=== PATIENT | male | born 1975 | race Caucasian/White ===

== ENCOUNTER → 2018-02-09 | Outpatient (CLI) | payer OTHER ==
[~2018-02-09] MED LIST: ACYC800 PO; ALBU90OI61 INH; ALPR1 PO; AMOX1XR PO; ATOR40TA PO; AZIT250 PO; BUTASPCAF PO; Bactrim Ds Tab1 EACH PO; CEPH500 PO; CIPHYDOTSU OT; CLON1 PO; CYCL10 PO; Cleocin HCl300 MG PO; Clonazepam1 MG PO; DIPATR PO; DIVA500EC; DIVA500EC PO; HYDACE5 PO; IBUP600 PO; IBUP800 PO; INSDET100 SC; INSULANPEN SC; Keflex500 MG PO; Klonopin1 MG PO; LAMO25 PO; LISI20 PO; LISI5 PO; LORA.5 PO; Lisinopril2.5 MG PO; METCAR500 PO; METF500 PO; MIRT15 PO; NAPR500 PO; NAPR550 PO; NEOCOLOTSU OT; NEOPOLHYDS BOTHEARS; NEOPOLHYDS OT; Naprosyn500 MG PO; Novolog Fl100 UNIT/1 SC; OLAN10 PO; OLAN5 PO; OMEP20ER PO; OXYACE5T PO; PENICILLIN; PENVK500; PRED10 PO; PRED20 PO; Percocet 5-3251 EACH PO; RXSULTRIDS PO; Robaxin-750750 MG PO; SULTRIDS PO; TRAM50 PO; UNKNOWN BP MED; Vistaril50 MG PO; Zofran Odt8 MG SL; Zofran4 MG PO; Zofran8 MG PO; Zyprexa10 MG PO; [UNRECOGNIZED DRUG - OTHER]
[2018-02-09 13:07] LABS: BASOPHILS ABSOLUTE AUTO 0.05 K/mm3 (0.00-0.23); BASOPHILS PERCENT AUTO 1 % (0-2); EOSINOPHILS ABSOLUTE AUTO 0.15 K/mm3 (0.00-0.68); EOSINOPHILS PERCENT AUTO 3 % (0-6); Hematocrit 44.8 % (37.0-53.0); Hemoglobin 15.5 g/dL (13.5-17.5); IMMATURE GRAN ABSOLUTE AUTO 0.01 K/mm3 (0.00-0.10); IMMATURE GRAN PERCENT AUTO 0 % (0-1); LYMPHOCYTES ABSOLUTE AUTO 1.56 K/mm3 (0.84-5.20); LYMPHOCYTES PERCENT AUTO 32 % (21-46); MONOCYTES PERCENT AUTO 10 % (4-13); Mean Corpuscular HGB 30.3 pg (26.0-34.0); Mean Corpuscular HGB Conc 34.6 g/dL (31.5-36.5); Mean Corpuscular Volume 88 fL (80-100); Mean Platelet Volume 10.1 fL (9.1-12.4); NEUTROPHILS ABSOLUTE AUTO 2.63 K/mm3 (1.96-9.15); NEUTROPHILS PERCENT AUTO 54 % (41-73); Platelet Count 256 K/mm3 (150-400); RDW Coefficient Variation 11.3 % (11.7-14.2); RDW Standard Deviation 36.4 fL (35.1-46.3); Red Blood Cell Count 5.11 M/mm3 (4.30-5.90)
[2018-02-09 13:41] LABS: Alanine Aminotransfer (ALT/SGP 25 U/L (12-78); Albumin, Blood 3.8 g/dL (3.4-5.0); Albumin/Globulin Ratio 1.1 (0.8-1.8); Alk Phos 123 U/L (50-136); Anion Gap 7 mmol/L (6-16); Aspartate Aminotrans (AST/SGOT 16 U/L (12-37); Bilirubin, Total 0.3 mg/dL (0.1-1.0); Blood Urea Nitrogen 14 mg/dL (8-24); Bun/Creatinine Ratio 17.3 (12.0-20.0); CO2, Blood 25 mmol/L (21-32); Calcium, Blood 9.2 mg/dL (8.5-10.1); Chloride, Blood 103 mmol/L (98-108); Creatinine, Blood 0.81 mg/dL (0.60-1.20); Globulin, Blood 3.5 g/dL (2.2-4.0); Glomerular Filtration Rate >60 (60-); Glucose, Blood 315 mg/dL (70-99); Potassium, Blood 4.1 mmol/L (3.5-5.5); Sodium, Blood 135 mmol/L (136-145); Total Protein, Blood 7.3 g/dL (6.4-8.2); Uric Acid, Blood 3.2 mg/dL (3.5-7.2)
== END ==
LOC: LAB SRC 12:09
PROVIDERS: Family Medicine
DX: E10.65 Type 1 diabetes mellitus with hyperglycemia (principal); M79.671 Pain in right foot
CPT/HCPCS: 36415; 80053; 82043; 83036; 84550; 85025

== ENCOUNTER 2018-03-10 08:58 | Emergency (ER) | payer SELFPAY ==
[~2018-03-10] VITALS: Ht 185.4 cm; Wt 86.2 kg
[2018-03-10] MEDS ORDERED: CYCL10 PO (09:43)
[2018-03-10] MEDS ORDERED: IBUP600 PO (09:43)
== END 2018-03-10 10:29 | disposition home or self-care (01) ==
LOC: ER 08:58
DX: G89.29 Other chronic pain (principal); M54.5 Low back pain; E10.9 Type 1 diabetes mellitus without complications; I10 Essential (primary) hypertension; Z79.84 Long term (current) use of oral hypoglycemic drugs; Z79.899 Other long term (current) drug therapy; Z87.891 Personal history of nicotine dependence
CPT/HCPCS: 82947; 96372; 99283; J1885

== ENCOUNTER 2018-06-04 21:06 | Emergency (ER) | payer SELFPAY ==
[~2018-06-04] VITALS: Ht 185.4 cm; Wt 83.9 kg
== END 2018-06-05 00:02 | disposition left against medical advice (07) ==
LOC: ER 21:06
DX: Z53.21 Procedure and treatment not carried out due to patient leaving prior to being seen by health care provider (principal)

== ENCOUNTER 2019-01-02 09:02 | Emergency (ER) | payer OTHER ==
[~2019-01-02] VITALS: Ht 185.4 cm; Wt 83.9 kg
[2019-01-02] MEDS ORDERED: DIVA250EC PO (09:29)
[2019-01-02] MEDS ORDERED: CEPH500 PO (09:42)
== END 2019-01-02 09:50 | disposition home or self-care (01) ==
LOC: ER 09:02
DX: S61.012A Laceration without foreign body of left thumb without damage to nail, initial encounter (principal); W26.8XXA Contact with other sharp object(s), not elsewhere classified, initial encounter; Z79.4 Long term (current) use of insulin; Z79.899 Other long term (current) drug therapy; F17.220 Nicotine dependence, chewing tobacco, uncomplicated; I10 Essential (primary) hypertension; E11.9 Type 2 diabetes mellitus without complications; F43.10 Post-traumatic stress disorder, unspecified
CPT/HCPCS: 12001; 99282-25

== ENCOUNTER 2019-01-10 12:03 | Emergency (ER) | payer OTHER ==
[~2019-01-10] VITALS: Ht 185.4 cm; Wt 86.2 kg
[~2019-01-10 12:03] MED LIST changes: +DIVA250EC PO
[2019-01-10] MEDS ORDERED: Mupirocin22 GM TOP (12:24)
== END 2019-01-10 12:34 | disposition home or self-care (01) ==
LOC: ER 12:03
DX: S61.012D Laceration without foreign body of left thumb without damage to nail, subsequent encounter (principal); X58.XXXD Exposure to other specified factors, subsequent encounter; Z79.4 Long term (current) use of insulin; Z79.899 Other long term (current) drug therapy; Z87.891 Personal history of nicotine dependence; I10 Essential (primary) hypertension; E11.9 Type 2 diabetes mellitus without complications; F43.10 Post-traumatic stress disorder, unspecified
CPT/HCPCS: 99282

== ENCOUNTER 2019-02-11 23:04 | Emergency (ER) | payer OTHER ==
[~2019-02-11] VITALS: Ht 185.4 cm; Wt 83.9 kg
[~2019-02-11 23:04] MED LIST changes: +Mupirocin22 GM TOP
[2019-02-12] MEDS ORDERED: Cyclobenzaprine5 MG PO (00:03)
[2019-02-12] MEDS ORDERED: KETO10 PO (00:03)
[2019-02-12] MEDS ORDERED: Robaxin500 MG PO (00:16)
== END 2019-02-12 00:24 | disposition home or self-care (01) ==
LOC: ER 23:04
DX: G89.29 Other chronic pain (principal); M54.5 Low back pain; Z79.899 Other long term (current) drug therapy; Z79.4 Long term (current) use of insulin; Z87.891 Personal history of nicotine dependence; I10 Essential (primary) hypertension; E11.9 Type 2 diabetes mellitus without complications; F43.10 Post-traumatic stress disorder, unspecified
CPT/HCPCS: 96372; 99283; J1885

== ENCOUNTER 2019-03-07 10:47 | Emergency (ER) | payer OTHER ==
[~2019-03-07] VITALS: Ht 185.4 cm; Wt 84.8 kg
[~2019-03-07 10:47] MED LIST changes: +Cyclobenzaprine5 MG PO; +KETO10 PO; +Robaxin500 MG PO
[2019-03-07] MEDS ORDERED: KETO10 PO (11:24)
[2019-03-07] MEDS ORDERED: Robaxin500 MG PO (11:24)
== END 2019-03-07 11:43 | disposition home or self-care (01) ==
LOC: ER 10:47
DX: G89.29 Other chronic pain (principal); M54.5 Low back pain; Z79.899 Other long term (current) drug therapy; Z79.84 Long term (current) use of oral hypoglycemic drugs; Z79.4 Long term (current) use of insulin; I10 Essential (primary) hypertension; E11.9 Type 2 diabetes mellitus without complications; F43.10 Post-traumatic stress disorder, unspecified; F17.220 Nicotine dependence, chewing tobacco, uncomplicated
CPT/HCPCS: 96372; 99283-25; J1885

== ENCOUNTER 2019-05-09 19:16 | Emergency (ER) | payer OTHER ==
[~2019-05-09] VITALS: Ht 182.9 cm; Wt 84.8 kg
[2019-05-09] MEDS ORDERED: Robaxin500 MG PO (20:52)
== END 2019-05-09 21:20 | disposition home or self-care (01) ==
LOC: ER 19:16
DX: M54.5 Low back pain (principal); Z79.4 Long term (current) use of insulin; Z79.899 Other long term (current) drug therapy; E11.9 Type 2 diabetes mellitus without complications; I10 Essential (primary) hypertension; F43.10 Post-traumatic stress disorder, unspecified; F17.220 Nicotine dependence, chewing tobacco, uncomplicated
CPT/HCPCS: 96372; 99283-25; A9270-GY; J1885

== ENCOUNTER 2019-05-30 08:21 | Inpatient (IN) | payer OTHER ==
[~2019-05-30] VITALS: Ht 185.4 cm; Wt 77.7 kg
[2019-05-30 09:02] LABS: BASOPHILS ABSOLUTE AUTO 0.07 K/mm3 (0.00-0.23); BASOPHILS PERCENT AUTO 0 % (0-2); EOSINOPHILS PERCENT AUTO 0 % (0-6); Hematocrit 48.5 % (37.0-53.0); Hemoglobin 15.7 g/dL (13.5-17.5); IMMATURE GRAN ABSOLUTE AUTO 0.07 K/mm3 (0.00-0.10); IMMATURE GRAN PERCENT AUTO 0 % (0-1); LYMPHOCYTES PERCENT AUTO 4 % (21-46); MONOCYTES ABSOLUTE AUTO 2.29 K/mm3 (0.16-1.47); MONOCYTES PERCENT AUTO 12 % (4-13); Mean Corpuscular HGB 31.3 pg (26.0-34.0); Mean Corpuscular HGB Conc 32.4 g/dL (31.5-36.5); Mean Corpuscular Volume 97 fL (80-100); Mean Platelet Volume 9.9 fL (9.1-12.4); NEUTROPHILS ABSOLUTE AUTO 15.66 K/mm3 (1.96-9.15); NEUTROPHILS PERCENT AUTO 83 % (41-73); Platelet Count 317 K/mm3 (150-400); RDW Coefficient Variation 12.1 % (11.7-14.2); RDW Standard Deviation 43.4 fL (35.1-46.3); Red Blood Cell Count 5.01 M/mm3 (4.30-5.90); White Blood Cell Count 18.79 K/mm3 (4.00-11.30)
[2019-05-30 09:31] LABS: Alanine Aminotransfer (ALT/SGP 49 U/L (12-78); Albumin, Blood 4.4 g/dL (3.4-5.0); Albumin/Globulin Ratio 1.2 (0.8-1.8); Alk Phos 122 U/L (50-136); Anion Gap 36 mmol/L (6-16); Aspartate Aminotrans (AST/SGOT 28 U/L (12-37); Bilirubin, Total 0.8 mg/dL (0.1-1.0); Blood Urea Nitrogen 35 mg/dL (8-24); Bun/Creatinine Ratio 19.8 (12.0-20.0); CO2, Blood 5 mmol/L (21-32); Chloride, Blood 88 mmol/L (98-108); Creatinine, Blood 1.77 mg/dL (0.60-1.20); Globulin, Blood 3.7 g/dL (2.2-4.0); Glomerular Filtration Rate 45 (60-); Glucose, Blood 703 mg/dL (70-99); Sodium, Blood 129 mmol/L (136-145); Total Protein, Blood 8.1 g/dL (6.4-8.2)
[2019-05-30 10:13] LABS: Base Excess Venous -28.2 mmol/L; Bicarbonate Venous 7.1 mmol/L (24.0-30.0); PO2 Venous 122 mmHg (38-42); pH Blood Venous 6.89 (7.34-7.37)
[2019-05-30 12:58] LABS: Glucose, Blood 421 mg/dL (70-99)
--- NOTE | 2019-05-30 14:30 | NUR ---
Patient arrived just after 1400 and was self transfer to ICU bed. He was alert and oriented and was independent in room Assisted him to bathroom with lines and pump. He has 900 yellow urine out. Admit dome by Antonietta MCCOY. Patient fell asleep very quickly but awakens to verbal stimuli. He has 18ga IB RFA and is infuing NS bolus and changed over to pump. He also has insulin gtt going at 8.2 units/hr.
[2019-05-30 14:38] LABS: Albumin, Blood 3.4 g/dL (3.4-5.0); Amylase, Blood 26 U/L (25-115); Anion Gap 21 mmol/L (6-16); Blood Urea Nitrogen 30 mg/dL (8-24); Bun/Creatinine Ratio 23.8 (12.0-20.0); CO2, Blood 11 mmol/L (21-32); Calcium, Blood 7.8 mg/dL (8.5-10.1); Chloride, Blood 106 mmol/L (98-108); Creatinine, Blood 1.26 mg/dL (0.60-1.20); Glomerular Filtration Rate >60 (60-); Glucose, Blood 292 mg/dL (70-99); Magnesium, Blood 2.3 mg/dL (1.6-2.4); Phosphorus, Blood 2.4 mg/dL (2.5-4.9); Potassium, Blood 4.2 mmol/L (3.5-5.5); Sodium, Blood 138 mmol/L (136-145)
--- NOTE | 2019-05-30 16:30 | NUR ---
Family present in room and patient sleeping. He awakened to take PO med with water and fell back to sleep. He remains on RA and sats upper 90%'s. His CBG was 166 and dropped insulin gtt to 4 units/hr. VSS. 2nd bolus done and started NS at 200ml/hr, gave biCard and protonix, potassium Phos.
--- NOTE | 2019-05-30 18:34 | NUR ---
Patient has been sleeping and awakens for care, CBG's last 3 hours have been 150-160 andf remains at 4 units/hr and started him on D5 1/2 at 150 ml/hr at 1730. RA, ANDRZEJ, See EMR. Just juvenal labs.
[2019-05-30 19:00] LABS: Albumin, Blood 2.8 g/dL (3.4-5.0); Anion Gap 10 mmol/L (6-16); Blood Urea Nitrogen 23 mg/dL (8-24); Bun/Creatinine Ratio 24.6 (12.0-20.0); CO2, Blood 18 mmol/L (21-32); Calcium, Blood 7.1 mg/dL (8.5-10.1); Chloride, Blood 110 mmol/L (98-108); Creatinine, Blood 0.93 mg/dL (0.60-1.20); Glomerular Filtration Rate >60 (60-); Glucose, Blood 252 mg/dL (70-99); Phosphorus, Blood 3.8 mg/dL (2.5-4.9); Potassium, Blood 4.7 mmol/L (3.5-5.5); Sodium, Blood 138 mmol/L (136-145)
--- NOTE | 2019-05-30 19:15 | NUR ---
ASSUMING CARE OF PT AT THIS TIME. PT REPORT RECEIVED AT BEDSIDE WITH OFFGOING NURSE, SAMIRA MCCOY. PT LAYING IN BED, SLEEPING UPON ENTERING THE ROOM. VS STABLE - SEE VS FS. PT DOES NOT APPEAR TO BE IN DISTRESS AT THIS TIME. WILL REVIEW PLAN OF CARE.
--- NOTE | 2019-05-30 19:30 | NUR ---
ASSESSMENT PT A&O X4, SLOW TO RESPOND, RESPONDS TO VERBAL STIMULI, SPONT OPENS EYES, DROWSY, LETHARGIC, QUICKLY FALLS BACK ASLEEP WITH DECREASED STIMULI. SENSATION INTACT. PT DENIES N/T. PT CAI. NORMAL STRENGTH BUE'S. SLIGHT WEAKNESS BLE'S. PT REPOSITIONS SELF IN BED. 1P SBA TO AMBUALTE. PT DENIES PAIN/DISCOMFORT. NO S/SX OF SHERIFF/DISCOMFORT NOTED. LUNGS CLEAR T/O. PT ON RA. OXT SAT >90%. RR 12. DENIES SOB. NO COUGHING. TEMP 99.9 - DECREASED ROOM TEMP, REMOVED BLANKETS, FAN TURNED ON. NSR. HR 90'S. BP STABLE - SEE VS FS. STRONG PULSES. WARM, PINK SKIN. DENIES CP. REFUSING RANDY HOSE. ACTIVE BT X4 QUADRANTS. ABD MILD DIST, SOFT, NONTENDER. NO N/V. NO BM. NPO D/T INSULIN DRIP. INSULIN DRIP AT 4 UNITS/HR - WILL TITRATE TO EFFECT. CHEMBG Q1 HR. PT VOIDS IN URINAL - DARK, YELLOW URINE NOTED. PIV X2. D5 1/2 NS @ 150 ML/HR.
[2019-05-30 22:47] LABS: Albumin, Blood 2.8 g/dL (3.4-5.0); Anion Gap 7 mmol/L (6-16); Blood Urea Nitrogen 21 mg/dL (8-24); Bun/Creatinine Ratio 24.5 (12.0-20.0); CO2, Blood 23 mmol/L (21-32); Calcium, Blood 7.5 mg/dL (8.5-10.1); Chloride, Blood 110 mmol/L (98-108); Creatinine, Blood 0.86 mg/dL (0.60-1.20); Glomerular Filtration Rate >60 (60-); Glucose, Blood 167 mg/dL (70-99); Magnesium, Blood 1.9 mg/dL (1.6-2.4); Phosphorus, Blood 2.1 mg/dL (2.5-4.9); Potassium, Blood 3.7 mmol/L (3.5-5.5); Sodium, Blood 140 mmol/L (136-145)
--- NOTE | 2019-05-30 23:15 | NUR ---
DR. LAVERNE GALLOWAY IN ICU AT THIS TIME. INFORMED DR. GALLOWAY OF PHOS 2.1 AND POTASSIUM 3.[address] GALLOWAY ORDERED POTASSIUM PHOS 20 MM AT THIS TIME. WAITING FOR MEDICATION FROM PHARMACY AT THIS TIME.
[2019-05-31 04:25] LABS: BASOPHILS ABSOLUTE AUTO 0.01 K/mm3 (0.00-0.23); BASOPHILS PERCENT AUTO 0 % (0-2); EOSINOPHILS ABSOLUTE AUTO 0.18 K/mm3 (0.00-0.68); EOSINOPHILS PERCENT AUTO 2 % (0-6); Hematocrit 37.3 % (37.0-53.0); IMMATURE GRAN ABSOLUTE AUTO 0.02 K/mm3 (0.00-0.10); IMMATURE GRAN PERCENT AUTO 0 % (0-1); LYMPHOCYTES ABSOLUTE AUTO 1.32 K/mm3 (0.84-5.20); LYMPHOCYTES PERCENT AUTO 15 % (21-46); MONOCYTES PERCENT AUTO 16 % (4-13); Mean Corpuscular HGB 31.6 pg (26.0-34.0); Mean Corpuscular HGB Conc 34.9 g/dL (31.5-36.5); Mean Corpuscular Volume 91 fL (80-100); Mean Platelet Volume 9.1 fL (9.1-12.4); NEUTROPHILS ABSOLUTE AUTO 5.95 K/mm3 (1.96-9.15); NEUTROPHILS PERCENT AUTO 67 % (41-73); Platelet Count 206 K/mm3 (150-400); RDW Coefficient Variation 12.1 % (11.7-14.2); RDW Standard Deviation 39.9 fL (35.1-46.3); Red Blood Cell Count 4.12 M/mm3 (4.30-5.90); White Blood Cell Count 8.88 K/mm3 (4.00-11.30)
[2019-05-31 04:42] LABS: Albumin, Blood 2.7 g/dL (3.4-5.0); Anion Gap 4 mmol/L (6-16); Blood Urea Nitrogen 16 mg/dL (8-24); Bun/Creatinine Ratio 21.7 (12.0-20.0); CO2, Blood 25 mmol/L (21-32); Calcium, Blood 7.6 mg/dL (8.5-10.1); Chloride, Blood 110 mmol/L (98-108); Creatinine, Blood 0.74 mg/dL (0.60-1.20); Glomerular Filtration Rate >60 (60-); Glucose, Blood 141 mg/dL (70-99); Phosphorus, Blood 2.7 mg/dL (2.5-4.9); Potassium, Blood 3.3 mmol/L (3.5-5.5); Sodium, Blood 139 mmol/L (136-145)
[2019-05-31 04:47] LABS: Anion Gap 5 mmol/L (6-16); Blood Urea Nitrogen 16 mg/dL (8-24); Bun/Creatinine Ratio 21.7 (12.0-20.0); CO2, Blood 25 mmol/L (21-32); Calcium, Blood 7.5 mg/dL (8.5-10.1); Chloride, Blood 110 mmol/L (98-108); Creatinine, Blood 0.74 mg/dL (0.60-1.20); Glomerular Filtration Rate >60 (60-); Glucose, Blood 143 mg/dL (70-99); Magnesium, Blood 1.9 mg/dL (1.6-2.4); Phosphorus, Blood 2.6 mg/dL (2.5-4.9); Potassium, Blood 3.4 mmol/L (3.5-5.5); Sodium, Blood 140 mmol/L (136-145)
[2019-05-31 04:53] LABS: Beta-hydroxybutyrate 1.3 mg/dL (0.2-2.8)
--- NOTE | 2019-05-31 05:17 | NUR ---
DR. GALLOWAY INFORMED DR. BUI OF AM LABS. DR. GALLOWAY ORDERD KCL 40 MEQ PO. WAITING FOR VERIFICATION OF MEDICATION FROM PHARMACY AT THIS TIME. DR. GALLOWAY INSTRUCTED TO CONT TO COMPLETE CHEMBG Q1 HR AND TITRATE INSULIN DRIP TO EFFECT.
--- NOTE | 2019-05-31 05:34 | NUR ---
SHIFT ASSESSMENT NO ACUTE CHANGES NOTED T/O SHIFT. PT A&O X4, SLOW TO RESPOND, RESPONDS TO VERBAL STIMULI, SPONT OPENS EYES, DROWSY, LETHARGIC, QUICKLY FALLS BACK ASLEEP WITH DECREASED STIMULI, SLEPT ALL SHIFT. SENSATION INTACT. PT DENIES N/T. PT CAI. NORMAL STRENGTH BUE'S. SLIGHT WEAKNESS BLE'S. PT REPOSITIONS SELF IN BED. 1P SBA TO AMBULATE. PT DENIES PAIN/DISCOMFORT. NO S/SX OF PAIN/DISCOMFORT NOTED. LUNGS CLEAR T/O. PT ON RA. OXY SAT >90%. RR 10 TO 20'S. DENIES SOB. NO COUGHING. TMAX 99.0 - DECREASED ROOM TEMP, FAN ON, REMOVED BLANKES. CURRENTLY AFEBRILE. NSR. HR 70'S TO 90'S. BP STABLE - SEE VS FS. STRONG PULSES. WARM, PINK SKIN. DENIES CP. REFUSING RANDY HOSE. ACTIVE BT X4 QUADRANTS. ABD MILD DSIT, SOFT, NONTENDER. NO N/V. NO BM. NPO D/T INSULIN DRIP. INSULIN DRIP CURRENTLY AT 2 UNITS/HR - CONT TO TITRATE TO EFFECT. CHEMBG COMPLETED Q1 HR. PT VOIDED IN EARLY AT BEGINNING OF THE SHIFT - DARK YELLOW URINE NOTED. PIV X2. D5 1/2 NS @ 150 ML/HR. WILL CONT TO MONITOR PT AND WILL PROVIDE BEDSIDE REPORT TO ONCOMING NURSE THIS AM.
[2019-05-31 06:18] LABS: Source, Urine Clean Catch
[2019-05-31 06:32] LABS: Appearance, Urine Clear (Clear); Bilirubin, Urine Neg (Neg); Blood, Urine Neg (Neg); Color, Urine Yellow (P-Yellow); Glucose Qualitative, Urine 2+ (Neg); Ketones, Urine 3+ (Neg); Leukocyte Esterase, Urine Neg (Neg); Nitrite, Urine Neg (Neg); Protein, Urine 1+ (Neg); Urobilinogen, Urine NORM (Normal)
[2019-05-31 08:26] LABS: Albumin, Blood 2.7 g/dL (3.4-5.0); Anion Gap 8 mmol/L (6-16); Blood Urea Nitrogen 14 mg/dL (8-24); Bun/Creatinine Ratio 18.7 (12.0-20.0); CO2, Blood 25 mmol/L (21-32); Calcium, Blood 7.7 mg/dL (8.5-10.1); Chloride, Blood 108 mmol/L (98-108); Creatinine, Blood 0.75 mg/dL (0.60-1.20); Glomerular Filtration Rate >60 (60-); Glucose, Blood 151 mg/dL (70-99); Potassium, Blood 3.4 mmol/L (3.5-5.5); Sodium, Blood 141 mmol/L (136-145)
--- NOTE | 2019-05-31 09:00 | NUR ---
BEGINNING OF SHIFT Assumed care of pt at 0700 with Tam MCCOY. Bedside report recieved from Nazia MCCOY. Pt on room air. Sinus rhtyhm per monitor. Pt alert and oriented. Pt on insulin gtt at 1 unit per hour at beginning of shift. New orders received from Dr Mackay. 15 units lantus given. Insulin drip turned off one hour after. Dr Mackay in to see pt; plan of care discussed with provider. Pt okay to be medical floor status without telemetry.
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
--- NOTE | 2019-05-31 11:00 | NUR ---
[address] Mackay spoke to patient, provider requested palliative care consult as patient verbalized frustration about family dynamics. Palliative care nurse, Darleen, spoke with patient and mentioned that pt had verbalized ideas of ending his own life. This RN assessed patient using [place] Suicide Severity Rating Scale. Pt stated that he did not want to be alive anymore because he works "seven days a week" and offers to financial support to several family members and feels that his kindness is not reciporicated. When asked if he has had thoughts of killing himself, he states "Yeah. Myself and other people." Pt states that he has attempted to purchase a gun but was unable to do so. Pt states "maybe I'll hang myself instead". This RN educated pt about positive screening and educated about items to be removed from room. Pt stated "I'm fine now. I'm just depressed". This RN states that precautions still need to be followed. Pt states "It doesn't matter. I have these thoughts every single day". Pt verbalizes desire to go home and states plan to leave. This RN placed call to Dr Mackay to notify her of positive screening. Also notified provider that pt is verbalizing plan to go home. Orders given for [address] Dillon consult notified. Pt notified of hold. Pt informed of guidelines regarding hold. Pt signs document stating he understands his civil rights. Environment risk assessment performed. Remote monitoring notified that pt requires observation. Nursing second shift supervisor aware.
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
--- NOTE | 2019-05-31 18:45 | NUR ---
SHIFT SUMMARY Pt completing telepsych consult with Dr Alejandro. No acute changes since last note. Pt is in improved mood, joking with staff members prior to video conference. Report given to oncoming RNHossein.
--- NOTE | 2019-05-31 20:00 | NUR ---
ASSUMED CARE OF PT, REPORT RCV'D FROM DARIUS BAZAN. PT FINISED TELEPSYCH CONSULT WITH DR. JAMIL. PER DR. JAMIL PT TAKEN OFF 2-MD HOLD AND CLEARED FOR RELEASE SOON MEDICALLY STABLE. HOSPITALIST CONTACTED AND PAPERWORK RELEASING HOLD COMPLETED AND SUBMITTED. PT ALERT, ORIENTED AND COOPERATIVE. PT AGREES THAT HE WOULD BENEFIT FROM AN ADDITIONAL NIGHT OF MONITORING IN THE HOSPITAL WITH THE PLAN TO DISCHARGE TOMORROW AND DENIES SI. PT ABLE TO AMBULATE INDEPENDENTLY WITH NO REPORTED ISSUES. SEE FULL SHIFT ASSESSMENT.
[2019-06-01 04:00] LABS: Albumin, Blood 2.6 g/dL (3.4-5.0); Anion Gap 6 mmol/L (6-16); Blood Urea Nitrogen 14 mg/dL (8-24); Bun/Creatinine Ratio 18.8 (12.0-20.0); CO2, Blood 29 mmol/L (21-32); Calcium, Blood 8.1 mg/dL (8.5-10.1); Chloride, Blood 106 mmol/L (98-108); Creatinine, Blood 0.75 mg/dL (0.60-1.20); Glomerular Filtration Rate >60 (60-); Glucose, Blood 240 mg/dL (70-99); Phosphorus, Blood 2.7 mg/dL (2.5-4.9); Potassium, Blood 3.5 mmol/L (3.5-5.5); Sodium, Blood 141 mmol/L (136-145)
--- NOTE | 2019-06-01 06:13 | NUR ---
SHIFT SUMMARY PT ABLE TO REST WELL OVERNIGHT. PT ALERT/ORIENTED, PLEASANT AND COOPERATIVE WITH CARE. ALL VSS. NO N/V. PT CONTINUES TO DENY SI AND STATES HE IS LOOKING FORWARD TO GOING HOME. WILL REPORT TO DAYSHIFT NURSE.
--- NOTE | 2019-06-01 08:03 | NUR ---
Recieved report from Hossein MCCOY. Patient laying on right side and was sleeping. He awakened for CBG and was able to communicate his needs. He is on RA and sats upper 90%'s. He is independent in room and calls appropriately.I set up breakfast and sat up on bed side He has bilateral FA IV's and both dressings intact and siotes WNL's and flushed and SL. He denies any current pain and would like to go home.
--- NOTE | 2019-06-01 10:14 | NUR ---
Patient has been up [facility] and walks outside . Ramila Lopez by to see patient and then Dr Link. He will be discharged soon. He tolerated breakfast well. He denies any current pain.
[2019-06-01] MEDS ORDERED: Humalog100 UNIT/3 SQ (11:11)
[2019-06-01] MEDS ORDERED: DIVA500ER PO (11:12)
--- NOTE | 2019-06-01 11:43 | NUR ---
Patient discharged home at 1130. He was given written discharge instructions and education on insulin SS to med. We revieved new med [facility] Ramila Lopez NP. And called in scripts to [facility]. He returned understanding of information and wanted to walk out on his own. Both IV's were pulled intact and wrapped with gauze and coban.
== END 2019-06-01 11:25 | disposition home or self-care (01) | DRG 638 ==
LOC: ER 08:21 → ICUW 12:24 → ICUE 12:24
PROVIDERS: Emergency Medicine; Internal Medicine; ADMIT Internal Medicine
DX: E11.10 Type 2 diabetes mellitus with ketoacidosis without coma (principal); E87.1 Hypo-osmolality and hyponatremia; R45.851 Suicidal ideations; E83.39 Other disorders of phosphorus metabolism; E87.6 Hypokalemia; F43.10 Post-traumatic stress disorder, unspecified; I10 Essential (primary) hypertension; G89.4 Chronic pain syndrome; M54.9 Dorsalgia, unspecified; F63.81 Intermittent explosive disorder; E86.0 Dehydration; E87.5 Hyperkalemia; Z59.0 Homelessness; Z79.84 Long term (current) use of oral hypoglycemic drugs; Z79.4 Long term (current) use of insulin; Z79.899 Other long term (current) drug therapy
CPT/HCPCS: 36415; 74176; 80048; 80053; 80069; 82010; 82150; 82803; 82947; 83036; 83605; 83690; 83735; 84100; 85025; 93005; 93010; 96361; 96374; 96375; 99285-25; C9113; J0780; J1170; J1650; J1815; J2405; J3480; J7030; J7042; J7060

== ENCOUNTER 2019-06-20 16:36 | Emergency (ER) | payer OTHER ==
[~2019-06-20] VITALS: Ht 185.4 cm; Wt 83.9 kg
[~2019-06-20 16:36] MED LIST changes: +DIVA500ER PO; +Humalog100 UNIT/3 SQ
== END 2019-06-20 17:31 | disposition home or self-care (01) ==
LOC: ER 16:36
DX: S90.851A Superficial foreign body, right foot, initial encounter (principal); W45.8XXA Other foreign body or object entering through skin, initial encounter; Z79.899 Other long term (current) drug therapy; Z79.4 Long term (current) use of insulin; E11.9 Type 2 diabetes mellitus without complications; I10 Essential (primary) hypertension; F43.10 Post-traumatic stress disorder, unspecified; Z87.891 Personal history of nicotine dependence
CPT/HCPCS: 10120; 90471; 90714; 99283-25

== ENCOUNTER 2019-07-08 21:18 | Emergency (ER) | payer OTHER ==
[~2019-07-08] VITALS: Ht 185.4 cm; Wt 86.2 kg
[2019-07-08] MEDS ORDERED: METF500 (21:26)
[2019-07-08] MEDS ORDERED: BUPR75 PO (21:26)
== END 2019-07-08 23:28 | disposition left against medical advice (07) ==
LOC: ER 21:18
DX: Z53.21 Procedure and treatment not carried out due to patient leaving prior to being seen by health care provider (principal)
CPT/HCPCS: 99282

== ENCOUNTER → 2019-07-16 | Outpatient (CLI) | payer OTHER ==
[~2019-07-16] MED LIST changes: +BUPR75 PO; +METF500
[2019-07-16 17:19] LABS: BASOPHILS ABSOLUTE AUTO 0.04 K/mm3 (0.00-0.23); BASOPHILS PERCENT AUTO 0 % (0-2); EOSINOPHILS ABSOLUTE AUTO 0.25 K/mm3 (0.00-0.68); EOSINOPHILS PERCENT AUTO 3 % (0-6); Hematocrit 47.4 % (37.0-53.0); Hemoglobin 16.7 g/dL (13.5-17.5); IMMATURE GRAN ABSOLUTE AUTO 0.02 K/mm3 (0.00-0.10); IMMATURE GRAN PERCENT AUTO 0 % (0-1); LYMPHOCYTES ABSOLUTE AUTO 0.93 K/mm3 (0.84-5.20); LYMPHOCYTES PERCENT AUTO 10 % (21-46); MONOCYTES ABSOLUTE AUTO 0.69 K/mm3 (0.16-1.47); MONOCYTES PERCENT AUTO 7 % (4-13); Mean Corpuscular HGB 31.8 pg (26.0-34.0); Mean Corpuscular HGB Conc 35.2 g/dL (31.5-36.5); Mean Corpuscular Volume 90 fL (80-100); Mean Platelet Volume 9.4 fL (9.1-12.4); NEUTROPHILS PERCENT AUTO 80 % (41-73); Platelet Count 241 K/mm3 (150-400); RDW Coefficient Variation 11.9 % (11.7-14.2); RDW Standard Deviation 39.5 fL (35.1-46.3); Red Blood Cell Count 5.25 M/mm3 (4.30-5.90); White Blood Cell Count 9.43 K/mm3 (4.00-11.30)
[2019-07-16 18:07] LABS: Alanine Aminotransfer (ALT/SGP 33 U/L (12-78); Albumin, Blood 3.8 g/dL (3.4-5.0); Albumin/Globulin Ratio 1.1 (0.8-1.8); Alk Phos 91 U/L (50-136); Amylase, Blood 28 U/L (25-115); Anion Gap 5 mmol/L (6-16); Aspartate Aminotrans (AST/SGOT 18 U/L (12-37); Bilirubin, Total 0.9 mg/dL (0.1-1.0); Blood Urea Nitrogen 17 mg/dL (8-24); Bun/Creatinine Ratio 18.6 (12.0-20.0); CO2, Blood 27 mmol/L (21-32); Calcium, Blood 8.8 mg/dL (8.5-10.1); Chloride, Blood 106 mmol/L (98-108); Creatinine, Blood 0.91 mg/dL (0.60-1.20); Globulin, Blood 3.6 g/dL (2.2-4.0); Glomerular Filtration Rate >60 (60-); Glucose, Blood 85 mg/dL (70-99); Potassium, Blood 3.7 mmol/L (3.5-5.5); Sodium, Blood 138 mmol/L (136-145); Total Protein, Blood 7.4 g/dL (6.4-8.2)
[2019-07-18 04:06] LABS: HBSAG SCREEN Negative (Negative); HEP A AB, IGM Negative (Negative); HEP B CORE AB, IGM Negative (Negative); HEP C VIRUS AB <0.1 (0.0-0.9)
== END | disposition home or self-care (01) ==
LOC: LAB SHORT 17:14 → LAB EV 17:14
PROVIDERS: Physician Assistant Surgical
DX: R11.2 Nausea with vomiting, unspecified (principal); R16.0 Hepatomegaly, not elsewhere classified
CPT/HCPCS: 80053; 80074; 82150; 83690; 85025

== ENCOUNTER → 2020-07-25 | Outpatient (CLI) | payer SELFPAY ==
[~2020-07-25] MED LIST changes: +AMOCLA875 PO; +B-1100 M1 PO; +BASAGLAR K100 UNIT/1 SC; -BUPR75 PO; +BUPROPION XL150 M1 PO; +DOCU100 PO; +Divalproex Sod250 MG PO; +HYDR1TAB94 PO; -Humalog100 UNIT/3 SQ; +INSULIN LI100 UNIT/6 SC; -LISI20 PO; +MELATONIN5 M1 PO; -METF500; +MULTI VITAMIN1 EACH PO; +NOVOLOG FL100 UNIT/3 SC
[2020-07-25 17:09] LABS: BASOPHILS ABSOLUTE AUTO 0.03 K/mm3 (0.00-0.23); BASOPHILS PERCENT AUTO 0 % (0-2); EOSINOPHILS PERCENT AUTO 1 % (0-6); Hematocrit 39.2 % (37.0-53.0); IMMATURE GRAN ABSOLUTE AUTO 0.03 K/mm3 (0.00-0.10); IMMATURE GRAN PERCENT AUTO 0 % (0-1); LYMPHOCYTES ABSOLUTE AUTO 0.98 K/mm3 (0.84-5.20); LYMPHOCYTES PERCENT AUTO 11 % (21-46); MONOCYTES ABSOLUTE AUTO 0.86 K/mm3 (0.16-1.47); MONOCYTES PERCENT AUTO 10 % (4-13); Mean Corpuscular HGB 32.1 pg (26.0-34.0); Mean Corpuscular HGB Conc 35.7 g/dL (31.5-36.5); Mean Corpuscular Volume 90 fL (80-100); Mean Platelet Volume 9.9 fL (9.1-12.4); NEUTROPHILS PERCENT AUTO 77 % (41-73); Platelet Count 220 K/mm3 (150-400); RDW Coefficient Variation 11.6 % (11.7-14.2); RDW Standard Deviation 38.5 fL (35.1-46.3); Red Blood Cell Count 4.36 M/mm3 (4.30-5.90)
[2020-07-25 17:19] LABS: Alanine Aminotransfer (ALT/SGP 24 U/L (12-78); Albumin, Blood 3.3 g/dL (3.4-5.0); Alk Phos 107 U/L (40-126); Anion Gap 10 mmol/L (6-16); Aspartate Aminotrans (AST/SGOT 16 U/L (12-37); Bilirubin, Total 0.4 mg/dL (0.1-1.0); Blood Urea Nitrogen 11 mg/dL (8-24); Bun/Creatinine Ratio 10.3 (12.0-20.0); CO2, Blood 28 mmol/L (21-32); Calcium, Blood 8.6 mg/dL (8.5-10.1); Chloride, Blood 96 mmol/L (98-108); Creatinine, Blood 1.07 mg/dL (0.60-1.20); Globulin, Blood 3.4 g/dL (2.2-4.0); Glomerular Filtration Rate >60 (60-); Glucose, Blood 333 mg/dL (70-99); Potassium, Blood 3.9 mmol/L (3.5-5.5); Sodium, Blood 134 mmol/L (136-145); Total Protein, Blood 6.7 g/dL (6.4-8.2)
== END ==
LOC: LAB EV 17:05 → LAB SHORT 17:05
PROVIDERS: Emergency Medicine
DX: E86.0 Dehydration (principal); R10.31 Right lower quadrant pain
CPT/HCPCS: 80053; 82010; 85025

== ENCOUNTER 2020-07-29 11:53 | Emergency (ER) | payer OTHER ==
[~2020-07-29] VITALS: Ht 185.4 cm; Wt 83.9 kg
[~2020-07-29 11:53] MED LIST changes: -DOCU100 PO; -MELATONIN5 M1 PO
[2020-07-29 12:47] LABS: BASOPHILS ABSOLUTE AUTO 0.02 K/mm3 (0.00-0.23); BASOPHILS PERCENT AUTO 0 % (0-2); EOSINOPHILS ABSOLUTE AUTO 0.19 K/mm3 (0.00-0.68); EOSINOPHILS PERCENT AUTO 4 % (0-6); Hematocrit 38.3 % (37.0-53.0); Hemoglobin 13.1 g/dL (13.5-17.5); IMMATURE GRAN ABSOLUTE AUTO 0.01 K/mm3 (0.00-0.10); IMMATURE GRAN PERCENT AUTO 0 % (0-1); LYMPHOCYTES ABSOLUTE AUTO 1.06 K/mm3 (0.84-5.20); LYMPHOCYTES PERCENT AUTO 21 % (21-46); MONOCYTES ABSOLUTE AUTO 0.82 K/mm3 (0.16-1.47); MONOCYTES PERCENT AUTO 16 % (4-13); Mean Corpuscular HGB 32.4 pg (26.0-34.0); Mean Corpuscular HGB Conc 34.2 g/dL (31.5-36.5); Mean Corpuscular Volume 95 fL (80-100); Mean Platelet Volume 9.4 fL (9.1-12.4); NEUTROPHILS PERCENT AUTO 58 % (41-73); Platelet Count 250 K/mm3 (150-400); RDW Coefficient Variation 11.9 % (11.7-14.2); RDW Standard Deviation 42.1 fL (35.1-46.3); Red Blood Cell Count 4.04 M/mm3 (4.30-5.90)
[2020-07-29 13:00] LABS: Alanine Aminotransfer (ALT/SGP 23 U/L (12-78); Albumin/Globulin Ratio 0.8 (0.8-1.8); Alk Phos 116 U/L (50-136); Anion Gap 5 mmol/L (6-16); Aspartate Aminotrans (AST/SGOT 10 U/L (12-37); Bilirubin, Total 0.2 mg/dL (0.1-1.0); Blood Urea Nitrogen 16 mg/dL (8-24); Bun/Creatinine Ratio 24.9 (12.0-20.0); CO2, Blood 30 mmol/L (21-32); Calcium, Blood 9.4 mg/dL (8.5-10.1); Chloride, Blood 104 mmol/L (98-108); Creatinine, Blood 0.64 mg/dL (0.60-1.20); Globulin, Blood 3.8 g/dL (2.2-4.0); Glomerular Filtration Rate >60 (60-); Glucose, Blood 217 mg/dL (70-99); Potassium, Blood 4.1 mmol/L (3.5-5.5); Sodium, Blood 139 mmol/L (136-145); Total Protein, Blood 6.8 g/dL (6.4-8.2)
[2020-07-29] MEDS ORDERED: DOCU100 PO (14:05)
[2020-07-29] MEDS ORDERED: MELATONIN5 M1 PO (14:13)
== END 2020-07-29 14:31 | disposition home or self-care (01) ==
LOC: ER 11:53
PROVIDERS: Emergency Medicine
DX: K91.89 Other postprocedural complications and disorders of digestive system (principal); I10 Essential (primary) hypertension; E10.9 Type 1 diabetes mellitus without complications; F43.10 Post-traumatic stress disorder, unspecified; F17.220 Nicotine dependence, chewing tobacco, uncomplicated; Z90.49 Acquired absence of other specified parts of digestive tract; Z79.899 Other long term (current) drug therapy
CPT/HCPCS: 36415; 74177; 80053; 83690; 85025; 96361; 96374-59; 99284-25; J1885; J7030; Q9967